=== PATIENT | female | born 1965 | race Caucasian/White ===

== ENCOUNTER 2016-12-04 23:50 | Inpatient (IN) | payer OTHER ==
[2016-12-04] MEDS ORDERED: SODIUM CHLORIDE 0.9% 1,000 ML with MVI, ADULT NO.4 WITH VIT K 10 ML, THIAMINE 100 MG, F... IV ONE ×4 (23:57)
--- NOTE | 2016-12-04 23:57 | ED ---
General Adult HPI - General Stated complaint: Seizure Time Seen by Provider: 12/04/16 23:50 Source: RN notes reviewed - History of Present Illness Initial comments: This is a 51-year-old female who presents to the emergency department via EMS. According to family she is a drinker and daughter believes she's been drinking up until yesterday. According to the patient's mother the patient started having some left-sided weakness and she shook for a few minutes and became unresponsive. EMS states they arrived and she was still unresponsive to them however she did respond to sternal rubs. EMS states that she was still confused however and slowly came around. Patient only complains of a mild headache and nausea at this time. Patient denies any numbness weakness. Patient denies any chest pain palpitations difficulty breathing or shortness of breath per patient denies abdominal pain patient denies any vomiting or diarrhea. Patient denies any recent fever chills or cough. Patient denies lightheadedness dizziness or near syncopal episode. - Related Data Home Medications Medication Instructions Recorded Confirmed Levothyroxine Sodium [Synthroid] 25 mcg PO DAILY 12/05/16 12/05/16 Allergies Allergy/AdvReac Type Severity Reaction Status Date / Time No Known Allergies Allergy Verified 12/05/16 00:02 Review of Systems ROS Statement: Those systems with pertinent positive or pertinent negative responses have been documented in the HPI. ROS Other: All systems not noted in ROS Statement are negative. General Exam - General Exam Comments Initial Comments: GENERAL: Patient is well-developed and well-nourished. Patient is nontoxic and well- hydrated and is in mild distress. ENT: Neck is soft and supple. No significant lymphadenopathy is noted. Oropharynx is clear. Moist mucous membranes. Neck has full range of motion without eliciting any pain. EYES: The sclera were anicteric and conjunctiva were pink and moist. Extraocular movements were intact and pupils were equal round and reactive to light. Eyelids were unremarkable. PULMONARY: Unlabored respirations. Good breath sounds bilaterally. No audible rales rhonchi or wheezing was noted. CARDIOVASCULAR: There is a regular rate and rhythm without any murmurs gallops or rubs. ABDOMEN: Soft and nontender with normal bowel sounds. No palpable organomegaly was noted. There is no palpable pulsatile mass. SKIN: Skin is clear with no lesions or rashes and otherwise unremarkable. NEUROLOGIC: Patient is alert and oriented x3. Cranial nerves II through XII are grossly intact. Motor and sensory are also intact. Normal speech, volume and content. Symmetrical smile. MUSCULOSKELETAL: Normal extremities with adequate strength and full range of motion. No lower extremity swelling or edema. No calf tenderness. LYMPHATICS: No significant lymphadenopathy is noted PSYCHIATRIC: Normal psychiatric evaluation. Normal interpersonal interactions appears functionally intact in deals appropriately with others. No signs of depression. No signs of anxiety. Course Vital Signs 12/04/16 12/05/16 12/05/16 23:59 00:06 00:33 Temperature 100.4 F H Pulse Rate 105 H 101 H 105 H Respiratory 18 18 18 Rate Blood Pressure 160/104 162/106 179/88 O2 Sat by Pulse 97 96 100 Oximetry 12/05/16 12/05/16 12/05/16 01:10 02:03 02:50 Temperature Pulse Rate 126 H 116 H 107 H Respiratory 18 16 16 Rate Blood Pressure 196/86 152/75 138/73 O2 Sat by Pulse 96 96 97 Oximetry Medical Decision Making - Medical Decision Making EKG shows sinus tachycardia at 104 bpm MA interval is 136 QRS is 86 QT interval 376 QTC is 494. Patient's EKG shows no ST segment elevation or depression or T- wave abdomen is noted. CT of the brain shows no acute abnormality. Chest x-ray shows no acute normalities. Patient started having a seizure while in the emergency department patient received 2 mg of Ativan. No source of infection this patient could be found. Patient was without complaints of any infection. Lactic acid may be elevated because of the seizure activity. - Lab Data Result diagrams: 12/04/16 23:59 12/04/16 23:59 Lab Results 12/04/16 12/04/16 12/04/16 Range/Units 23:59 23:59 23:59 WBC 5.8 (3.8-10.6) k/uL RBC 3.69 L (3.80-5.40) m/uL Hgb 11.9 (11.4-16.0) gm/dL Hct 36.6 (34.0-46.0) % MCV 99.0 (80.0-100.0) fL MCH 32.2 (25.0-35.0) pg MCHC 32.5 (31.0-37.0) g/dL RDW 13.7 (11.5-15.5) % Plt Count 96 L (150-450) k/uL Neutrophils % 78 % Lymphocytes % 14 % Monocytes % 4 % Eosinophils % 2 % Basophils % 1 % Neutrophils # 4.6 (1.3-7.7) k/uL Lymphocytes # 0.8 L (1.0-4.8) k/uL Monocytes # 0.3 (0-1.0) k/uL Eosinophils # 0.1 (0-0.7) k/uL Basophils # 0.0 (0-0.2) k/uL Manual Slide Review Performed PT (9.0-12.0) sec INR (<1.1) APTT (22.0-30.0) sec Sodium 133 L (137-145) mmol/L Potassium 4.0 (3.5-5.1) mmol/L Chloride 98 (98-107) mmol/L Carbon Dioxide 16 L (22-30) mmol/L Anion Gap 19 mmol/L BUN 7 (7-17) mg/dL Creatinine 0.80 (0.52-1.04) mg/dL Est GFR (MDRD) Af Amer >60 (>60 ml/min/1.73 sqM) Est GFR (MDRD) Non-Af >60 (>60 ml/min/1.73 sqM) Glucose 167 H (74-99) mg/dL POC Glucose (mg/dL) (75-99) mg/dL POC Glu Cake Inspector ID Plasma Lactic Acid Tonio (0.7-2.0) mmol/L Calcium 8.3 L (8.4-10.2) mg/dL Magnesium 1.8 (1.6-2.3) mg/dL Total Bilirubin 1.2 (0.2-1.3) mg/dL AST 105 H (14-36) U/L ALT 43 (9-52) U/L Alkaline Phosphatase 70 (38-126) U/L Total Creatine Kinase 314 H (30-135) U/L CK-MB (CK-2) 3.5 H* (0.0-2.4) ng/mL CK-MB (CK-2) Rel Index 1.1 Troponin I <0.012 (0.000-0.034) ng/mL Total Protein 6.8 (6.3-8.2) g/dL Albumin 4.7 (3.5-5.0) g/dL Urine Color Urine Appearance (Clear) Urine pH (5.0-8.0) Ur Specific [place] (1.001-1.035) Urine Protein (Negative) Urine Glucose (UA) (Negative) Urine Ketones (Negative) Urine Blood (Negative) Urine Nitrite (Negative) Urine Bilirubin (Negative) Urine Urobilinogen (<2.0) mg/dL Ur Leukocyte Esterase (Negative) Urine RBC (0-5) /hpf Urine WBC (0-5) /hpf Ur Squamous Epith Cells (0-4) /hpf Urine Bacteria (None) /hpf Granular Casts (0) /lpf Urine Mucus (None) /hpf 12/04/16 12/05/16 12/05/16 Range/Units 23:59 00:01 00:07 WBC (3.8-10.6) k/uL RBC (3.80-5.40) m/uL Hgb (11.4-16.0) gm/dL Hct (34.0-46.0) % MCV (80.0-100.0) fL MCH (25.0-35.0) pg MCHC (31.0-37.0) g/dL RDW (11.5-15.5) % Plt Count (150-450) k/uL Neutrophils % % Lymphocytes % % Monocytes % % Eosinophils % % Basophils % % Neutrophils # (1.3-7.7) k/uL Lymphocytes # (1.0-4.8) k/uL Monocytes # (0-1.0) k/uL Eosinophils # (0-0.7) k/uL Basophils # (0-0.2) k/uL Manual Slide Review PT 10.5 (9.0-12.0) sec INR 1.0 (<1.1) APTT 22.1 (22.0-30.0) sec Sodium (137-145) mmol/L Potassium (3.5-5.1) mmol/L Chloride (98-107) mmol/L Carbon Dioxide (22-30) mmol/L Anion Gap mmol/L BUN (7-17) mg/dL Creatinine (0.52-1.04) mg/dL Est GFR (MDRD) Af Amer (>60 ml/min/1.73 sqM) Est GFR (MDRD) Non-Af (>60 ml/min/1.73 sqM) Glucose (74-99) mg/dL POC Glucose (mg/dL) 172 H (75-99) mg/dL POC Glu Cake Inspector ID Nacny Mccollum Plasma Lactic Acid Tonio 7.0 H* (0.7-2.0) mmol/L Calcium (8.4-10.2) mg/dL Magnesium (1.6-2.3) mg/dL Total Bilirubin (0.2-1.3) mg/dL AST (14-36) U/L ALT (9-52) U/L Alkaline Phosphatase (38-126) U/L Total Creatine Kinase (30-135) U/L CK-MB (CK-2) (0.0-2.4) ng/mL CK-MB (CK-2) Rel Index Troponin I (0.000-0.034) ng/mL Total Protein (6.3-8.2) g/dL Albumin (3.5-5.0) g/dL Urine Color Urine Appearance (Clear) Urine pH (5.0-8.0) Ur Specific [place] (1.001-1.035) Urine Protein (Negative) Urine Glucose (UA) (Negative) Urine Ketones (Negative) Urine Blood (Negative) Urine Nitrite (Negative) Urine Bilirubin (Negative) Urine Urobilinogen (<2.0) mg/dL Ur Leukocyte Esterase (Negative) Urine RBC (0-5) /hpf Urine WBC (0-5) /hpf Ur Squamous Epith Cells (0-4) /hpf Urine Bacteria (None) /hpf Granular Casts (0) /lpf Urine Mucus (None) /hpf 12/05/16 Range/Units 01:51 WBC (3.8-10.6) k/uL RBC (3.80-5.40) m/uL Hgb (11.4-16.0) gm/dL Hct (34.0-46.0) % MCV (80.0-100.0) fL MCH (25.0-35.0) pg MCHC (31.0-37.0) g/dL RDW (11.5-15.5) % Plt Count (150-450) k/uL Neutrophils % % Lymphocytes % % Monocytes % % Eosinophils % % Basophils % % Neutrophils # (1.3-7.7) k/uL Lymphocytes # (1.0-4.8) k/uL Monocytes # (0-1.0) k/uL Eosinophils # (0-0.7) k/uL Basophils # (0-0.2) k/uL Manual Slide Review PT (9.0-12.0) sec INR (<1.1) APTT (22.0-30.0) sec Sodium (137-145) mmol/L Potassium (3.5-5.1) mmol/L Chloride (98-107) mmol/L Carbon Dioxide (22-30) mmol/L Anion Gap mmol/L BUN (7-17) mg/dL Creatinine (0.52-1.04) mg/dL Est GFR (MDRD) Af Amer (>60 ml/min/1.73 sqM) Est GFR (MDRD) Non-Af (>60 ml/min/1.73 sqM) Glucose (74-99) mg/dL POC Glucose (mg/dL) (75-99) mg/dL POC Glu Cake Inspector ID Plasma Lactic Acid Tonio (0.7-2.0) mmol/L Calcium (8.4-10.2) mg/dL Magnesium (1.6-2.3) mg/dL Total Bilirubin (0.2-1.3) mg/dL AST (14-36) U/L ALT (9-52) U/L Alkaline Phosphatase (38-126) U/L Total Creatine Kinase (30-135) U/L CK-MB (CK-2) (0.0-2.4) ng/mL CK-MB (CK-2) Rel Index Troponin I (0.000-0.034) ng/mL Total Protein (6.3-8.2) g/dL Albumin (3.5-5.0) g/dL Urine Color Yellow Urine Appearance Clear (Clear) Urine pH 5.5 (5.0-8.0) Ur Specific [place] 1.014 (1.001-1.035) Urine Protein 1+ H (Negative) Urine Glucose (UA) 2+ H (Negative) Urine Ketones 1+ H (Negative) Urine Blood Small H (Negative) Urine Nitrite Negative (Negative) Urine Bilirubin Negative (Negative) Urine Urobilinogen <2.0 (<2.0) mg/dL Ur Leukocyte Esterase Negative (Negative) Urine RBC 2 (0-5) /hpf Urine WBC 2 (0-5) /hpf Ur Squamous Epith Cells <1 (0-4) /hpf Urine Bacteria Rare H (None) /hpf Granular Casts 3 (0) /lpf Urine Mucus Rare H (None) /hpf Disposition Clinical Impression: Alcohol withdrawal seizure Disposition: ADMITTED IP TO THIS HOSP Referrals: None,Stated [Primary Care Provider] - 1-2 days Time of Disposition: 03:17
[2016-12-05] MEDS ORDERED: ACETAMINOPHEN TAB 500 MG TAB PO STA (00:08)
[2016-12-05 00:10] LABS: Glucose,Whole Blood 172 mg/dL (75-99)
[2016-12-05 00:20] LABS: Basophils % (A) 1 %; CH 32.1; CHCM 32.6; Eosinophils # (A) 0.1 k/uL (0-0.7); Eosinophils % (A) 2 %; HCT 36.6 % (34.0-46.0); HDW 1.91; HGB 11.9 gm/dL (11.4-16.0); Luc # (Auto) 0.06; Luc % (Auto) 1; Lymphocytes # (A) 0.8 k/uL (1.0-4.8); Lymphocytes % (A) 14 %; MCH 32.2 pg (25.0-35.0); MCHC 32.5 g/dL (31.0-37.0); Mean Platelet Volume 7.3; Monocytes # (A) 0.3 k/uL (0-1.0); Monocytes % (A) 4 %; Neutrophils # (A) 4.6 k/uL (1.3-7.7); Neutrophils % (A) 78 %; RBC 3.69 m/uL (3.80-5.40); RDW 13.7 % (11.5-15.5); WBC 5.8 k/uL (3.8-10.6); WBC (Perox) 5.89
[2016-12-05 00:25] LABS: ALT 43 U/L (9-52); AST 105 U/L (14-36); Alkaline Phosphatase 70 U/L (38-126); Anion Gap 19 mmol/L; Blood Urea Nitrogen 7 mg/dL (7-17); Calcium 8.3 mg/dL (8.4-10.2); Carbon Dioxide 16 mmol/L (22-30); Chloride 98 mmol/L (98-107); Glucose 167 mg/dL (74-99); Magnesium 1.8 mg/dL (1.6-2.3); Non-African American GFR(MDRD) >60 (>60 ml/min/1.73 sqM); Sodium 133 mmol/L (137-145); Total Bilirubin 1.2 mg/dL (0.2-1.3); Total Protein 6.8 g/dL (6.3-8.2)
[2016-12-05 00:27] LABS: Partial Thromboplastin Time 22.1 sec (22.0-30.0); Prothrombin Time 10.5 sec (9.0-12.0)
[2016-12-05 00:34] LABS: Creatine Kinase 314 U/L (30-135)
[2016-12-05 00:47] LABS: Troponin I <0.012 ng/mL (0.000-0.034)
[2016-12-05 00:48] LABS: Manual Review Performed
--- NOTE | 2016-12-05 00:48 | XR ---
EXAM: XR Chest, 2 Views CLINICAL HISTORY: Reason: Chest Pain. seizure and slurred speech tonight TECHNIQUE: Frontal and lateral views of the chest. COMPARISON: None FINDINGS: Lungs/pleura: Normal. No focal consolidation. No pleural effusion or pneumothorax. Heart/mediastinum: Normal. No cardiomegaly. Soft tissues: Unremarkable. Bones: No acute fracture. Degenerative changes of the spine. Upper abdomen: Normal. IMPRESSION: No acute disease.
[2016-12-05] MEDS ORDERED: LORazepam 2 MG/ML SYRINGE IV STA ×2 (00:52→01:06)
[2016-12-05] MEDS ORDERED: ONDANSETRON 4 MG/2 ML VIAL IVP STA (00:52)
--- NOTE | 2016-12-05 01:05 | CT ---
EXAM: CT Head Without Intravenous Contrast CLINICAL HISTORY: Reason: Pain, seizure and fever. TECHNIQUE: Axial computed tomography images of the head/brain without intravenous contrast. CTDI is 60.30 mGy and DLP is 999.80 mGy-cm. This CT exam was performed using one or more of the following dose reduction techniques: automated exposure control, adjustment of the mA and/or kV according to patient size, and/or use of iterative reconstruction technique. COMPARISON: None FINDINGS: Brain: No acute infarct or hemorrhage. No extra-axial fluid collection. No mass effect or midline shift. Mild cerebral volume loss. Ventricles and sulci: No ventriculomegaly or intraventricular hemorrhage. Skull: Normal. No bony lesion or fracture. Subcutaneous tissues: Normal. Sinuses: Mild mucosal thickening in the maxillary sinuses and ethmoid air cells. Mastoid air cells: Normal. Orbits: Grossly unremarkable. IMPRESSION: No acute intracranial abnormality.
[2016-12-05 01:10] LABS: Creatine Kinase MB 3.5 ng/mL (0.0-2.4)
[2016-12-05 02:12] LABS: Appearance,Urine Clear (Clear); Bacteria,Urine Rare /hpf; Bilirubin,Urine Negative (Negative); Glucose,Urine (UA) 2+ (Negative); Granular Casts,Urine 3 /lpf (0); Ketones,Urine 1+ (Negative); Leukocyte Esterase,Urine Negative (Negative); Mucus,Urine Rare /hpf; Nitrite,Urine Negative (Negative); PH, Urine 5.5 (5.0-8.0); Particle Count 10501; Protein,Urine 1+ (Negative); RBC,Urine 2 /hpf (0-5); Specific Gravity,Urine 1.014 (1.001-1.035); Squamous Epithelial Cell,Urine <1 /hpf (0-4); UA Billing (MACRO vs. MICRO) MICRO; Urobilinogen,Urine <2.0 mg/dL (<2.0); WBC,Urine 2 /hpf (0-5)
[2016-12-05] MEDS ORDERED: SODIUM CHLORIDE 0.9% 2,000 ML IV ONE (03:15)
[2016-12-05] MEDS ORDERED: SODIUM CHLORIDE 0.9% 1,000 ML IV ONE (03:18)
[2016-12-05 11:52] LABS: Basophils % (A) 0 %; CH 32.3; CHCM 32.9; Eosinophils # (A) 0.2 k/uL (0-0.7); Eosinophils % (A) 3 %; HDW 1.93; HGB 11.9 gm/dL (11.4-16.0); Luc # (Auto) 0.07; Luc % (Auto) 1; Lymphocytes # (A) 1.2 k/uL (1.0-4.8); Lymphocytes % (A) 17 %; MCH 31.9 pg (25.0-35.0); MCHC 32.3 g/dL (31.0-37.0); MCV 98.6 fL (80.0-100.0); Monocytes # (A) 0.3 k/uL (0-1.0); Monocytes % (A) 5 %; Neutrophils % (A) 74 %; RBC 3.75 m/uL (3.80-5.40); RDW 13.7 % (11.5-15.5); WBC 6.7 k/uL (3.8-10.6); WBC (Perox) 6.84
[2016-12-05 12:13] LABS: Anion Gap 6 mmol/L; Blood Urea Nitrogen 10 mg/dL (7-17); Calcium 8.1 mg/dL (8.4-10.2); Carbon Dioxide 26 mmol/L (22-30); Chloride 104 mmol/L (98-107); Glucose 85 mg/dL (74-99); Non-African American GFR(MDRD) >60 (>60 ml/min/1.73 sqM); Potassium 4.1 mmol/L (3.5-5.1); Sodium 136 mmol/L (137-145)
[2016-12-05] MEDS: THIAMINE 100 MG TAB PO SCH (17:56)
[2016-12-05] MEDS: LORazepam 2 MG/ML SYRINGE IV PRN ×2 (17:57→20:40)
[2016-12-05] MEDS ORDERED: TEMAZEPAM 15 MG CAP PO PRN (20:39)
[2016-12-05] MEDS ORDERED: cloNIDine HCL 0.1 MG TAB PO PRN (20:39)
--- NOTE | 2016-12-05 23:00 | HP ---
DATE OF ADMISSION: 12/05/2016 CHIEF COMPLAINT: Seizure disorder. HISTORY OF PRESENT ILLNESS: This 51-year-old woman with a past medical history of multiple medical problems, including hypothyroidism, history of section, history of anxiety, depression, has a history of heavy alcohol intake. Patient is not being followed by a primary physician in the outpatient setting. The patient apparently lives with her mother, and the patient was hiding the alcohol. At home, her mother noticed some weakness of the face, and subsequently the patient's eyeballs rolled backwards. The patient became unresponsive and had jerky movements. The patient had another episode of seizure in the ER, also. The patient was admitted for further evaluation and treatment. Alcoholic overdosage was suspected. The plasma lactic acid was found to be yesterday, which is improving at this time. Otherwise, the platelets are 96. There is no history of any fever, rigor or chills at this time. PAST MEDICAL HISTORY: 1. History of hypothyroidism. 2. History of anxiety, depression. 3. History of nicotine dependence. MEDICATIONS: Levothyroxine 112 mcg p.o. daily. ALLERGIES: NONE. FAMILY HISTORY: History of DJD, rheumatoid arthritis. SOCIAL HISTORY: History of alcohol, as mentioned earlier. Current everyday smoker. REVIEW OF SYSTEMS: ENT: No diminishing hearing. No diminished vision. CARDIOVASCULAR SYSTEM: No angina, palpitations. RESPIRATORY SYSTEM: No cough, hemoptysis. GI: As mentioned earlier. : No dysuria, retention. NERVOUS SYSTEM: As mentioned earlier. ALLERGY/IMMUNOLOGY: No asthma, hayfever. MUSCULOSKELETAL: As mentioned earlier. HEMATOLOGY/ONCOLOGY: No history of anemia. ENDOCRINE: Hypothyroidism. CONSTITUTIONAL: As mentioned earlier. DERMATOLOGY: Negative. RHEUMATOLOGY: Negative. PSYCHIATRY: Anxiety, depression. PHYSICAL EXAMINATION: Patient alert and oriented x3. Pulse 110, blood pressure 148/98, respiration 20, temperature 98.8, pulse ox 96% on room air. T-max 100.4. Blood pressure was 160/104. HEENT: Conjunctivae normal. NECK: No jugular venous distention. CARDIOVASCULAR SYSTEM: S1, S2 muffled. RESPIRATORY: Breath sounds diminished at the bases. A few scattered rhonchi. No crackles. ABDOMEN: Soft, nontender. No mass palpable. Moves all 4 limbs. No focal motor or sensory deficit. LYMPHATICS: No lymph node palpable in neck, axilla or groin. Labs at this time show WBC 5.8, platelets 56; sodium 133. Lactic acid as noted. Creatine kinase is 314. Troponin is less than 0.012. ASSESSMENT: 1. Acute generalized tonic-clonic seizure, possibly secondary to alcohol withdrawal. 2. Alcohol withdrawal and early delirium tremens. 3. History of nicotine dependence. 4. Thrombocytopenia. 5. Hyponatremia secondary to alcohol. 6. Decreased carbon dioxide. 7. Mild rhabdomyolysis from seizures. 8. Increased random blood sugar. 9. Increased plasma lactic acid from seizures. 10. Increased AST, possibly mild alcoholic hepatitis. 11. Depression. 12. History of hypothyroidism. 13. History of anxiety. 14. FULL CODE. RECOMMENDATIONS AND DISCUSSION: In this 51-year-old woman who presented with multiple complex medical issues, we will monitor the patient closely, continue the current medication, continue symptomatic treatment. I recommend CIAZ protocol. Supplement vitamins. Otherwise, monitor closely. IV fluids. Neurology consultation. Psychiatric consultation. See orders for further details. grease rack worker and case management evaluation to arrange possible rehab. Otherwise, prognosis extremely guarded, which I discussed at length with the patient, who understands and agrees. Further recommendations to follow. I would also recommend that the patient follow up closely with a primary physician. DVT prophylaxis. See orders for further details.
[2016-12-05] MEDS: NICOTINE 14MG/24HR PATCH TRANSDERM SCH (23:20)
[2016-12-06] MEDS: LEVOTHYROXINE 112 MCG TAB PO SCH (06:47)
[2016-12-06] MEDS: NICOTINE 14MG/24HR PATCH TRANSDERM SCH (09:50)
[2016-12-06] MEDS: PANTOPRAZOLE 40 MG TABLET PO SCH (09:50)
[2016-12-06] MEDS: LORazepam 2 MG/ML SYRINGE IV PRN (10:06)
[2016-12-06 10:13] LABS: ALT 23 U/L (9-52); AST 56 U/L (14-36); Alkaline Phosphatase 49 U/L (38-126); Anion Gap 8 mmol/L; Blood Urea Nitrogen 12 mg/dL (7-17); Calcium 8.7 mg/dL (8.4-10.2); Carbon Dioxide 24 mmol/L (22-30); Chloride 104 mmol/L (98-107); Cholesterol 209 mg/dL (<200); Glucose 115 mg/dL (74-99); Magnesium 1.9 mg/dL (1.6-2.3); Non-African American GFR(MDRD) >60 (>60 ml/min/1.73 sqM); Potassium 4.5 mmol/L (3.5-5.1); Sodium 136 mmol/L (137-145); Total Bilirubin 1.5 mg/dL (0.2-1.3); Total Protein 6.7 g/dL (6.3-8.2); Triglycerides 63 mg/dL (<150)
[2016-12-06 10:22] LABS: HDL Cholesterol 147 mg/dL (40-60)
[2016-12-06] MEDS: FOLIC ACID 1 MG TAB PO SCH (13:29)
[2016-12-06] MEDS: MULTIVITAMINS, THERA 1 EACH TAB PO SCH (13:29)
[2016-12-06] MEDS: THIAMINE 100 MG TAB PO SCH ×2 (13:29→17:48)
[2016-12-06] MEDS: cloNIDine HCL 0.1 MG TAB PO SCH (17:48)
[2016-12-06] MEDS: HYDROcodone/APAP 5-325MG 1 EACH TAB PO PRN (17:50)
--- NOTE | 2016-12-06 20:47 | PN ---
DATE OF SERVICE: 12/06/2016 This 51-year-old woman who was admitted with acute generalized tonic clonic seizure possibly secondary to alcohol withdrawal has been closely monitored. No chest pain. No palpitation. No fever. On exam, alert and oriented x3. Pulse is 98, blood pressure 140/97, respirations 20, temperature 98.6, pulse ox 98% on room air. HEENT: Conjunctivae normal. NECK: No jugular venous distention. CARDIOVASCULAR: S1 and S2. RESPIRATORY: Breath sounds diminished at the bases. No rhonchi, no crackles. ABDOMEN: Soft, nontender. LEGS: No edema, no swelling. NERVOUS SYSTEM: No focal deficits. Labs are noted. Hemoglobin 11.1, platelets 105, sodium 136, total bilirubin is 1.5. Cholesterol is 209, LDL is 147. ASSESSMENT: 1. Acute generalized tonic-clonic seizures, possibly secondary to alcohol withdrawal. 2. Alcohol withdrawal and early delirium tremens. 3. History of nicotine dependence. 4. Thrombocytopenia secondary to alcohol. 5. Hyponatremia secondary to alcohol. 6. Decreased CO2. 7. Hyperlipidemia. 8. Mild rhabdomyolysis and seizures. 9. History of increased random blood sugar. 10. Increased plasma lactic acid from seizures. 11. Increased AST, possibly mild alcoholic hepatitis. 12. Depression, not otherwise specified. 13. History of hypothyroidism. 14. History of anxiety. 15. FULL CODE. RECOMMENDATIONS AND DISCUSSION: I recommend to continue current medications, continue with symptomatic treatment at this time. We will monitor the patient closely. Otherwise, repeat labs in the morning. Neurology consultation, increase ambulation, alcohol cessation. Follow up labs with the primary physician. Guarded prognosis because of multiple complex medical issues as mentioned earlier. I also recommend the patient to get alcohol rehab. We will work with the social studies teacher and case management for the same. Guarded prognosis. Further recommendations to follow.
--- NOTE | 2016-12-06 21:27 | P.CNNES ---
History of Present Illness Consult date: 12/06/16 Reason for Consult: Patient being evaluated for alcohol withdrawal seizure. History of Present Illness: This patient is a 51-year-old right-handed white female who has a history of excessive alcohol abuse for the past several years. Patient was being followed by a primary care physician in the [facility] but has not seen her for several years. Apparently she lives at home with her mother and was drinking heavily. She then stopped and recently has been working on trying to discontinue alcohol use. She has not been in a formal drug rehabilitation program for alcohol abuse. The patient apparently was at home and had a episode in which her mother noticed her to become confused. She then became weak and slumped over and her eyes rolled backwards into her head. Patient became unresponsive and had some jerking motion of the arms and legs. Her mother decided to call EMS and she was brought into the emergency room. She had another seizure in the ER. The patient was started on a CIWA protocol and was admitted to the hospital for alcohol withdrawal seizure. She does have history of underlying depression and anxiety disorder. We have recommended she would be a good candidate to consider [facility]. She is aware of this program. The patient states her last seizure was many years ago. She has not had any recent alcohol related seizures for over 4 years. She is now resting comfortably in his had no further spells since admission to the hospital. She is now been admitted and neurology has been consulted for further evaluation and recommendations. Review of Systems Constitutional: Denies chills, Denies fever Eyes: denies blurred vision, denies pain Ears, nose, mouth and throat: Denies headache, Denies sore throat Cardiovascular: Denies chest pain, Denies shortness of breath Respiratory: Denies cough Gastrointestinal: Denies abdominal pain, Denies diarrhea, Denies nausea, Denies vomiting Genitourinary: Denies dysuria, Denies hematuria Musculoskeletal: Denies myalgias Integumentary: Denies pruritus, Denies rash Neurological: Reports change in mentation, Reports convulsions, Reports memory loss, Denies numbness, Denies weakness Psychiatric: Denies anxiety, Denies depression Endocrine: Denies fatigue, Denies weight change Past Medical History Additional Past Medical History / Comment(s): hypothyroidism History of Any Multi-Drug Resistant Organisms: None Reported Past Surgical History: Section, Tonsillectomy Past Anesthesia/Blood Transfusion Reactions: No Reported Reaction Past Psychological History: Anxiety, Depression Smoking Status: Current every day smoker Past Alcohol Use History: Heavy Past Drug Use History: None Reported - Past Family History Mother Family Medical History: Osteoarthritis (OA), Rheumatoid Arthritis (RA) Additional Family Medical History / Comment(s): throid Medications and Allergies Home Medications Medication Instructions Recorded Confirmed Type Levothyroxine Sodium [Synthroid] 112 mcg PO DAILY 12/05/16 12/05/16 History Allergies Allergy/AdvReac Type Severity Reaction Status Date / Time No Known Allergies Allergy Verified 12/05/16 07:33 Physical Examination - Vital Signs Vital Signs: Vital Signs Temp Pulse Resp BP BP Pulse Ox 12/06/16 15:00 98.6 F 98 20 146/97 98 12/06/16 07:00 97.0 F L 73 20 136/80 97 12/05/16 23:00 99.4 F 101 H 20 138/73 97 Intake and Output 12/06/16 12/06/16 12/06/16 06:59 14:59 22:59 Intake Total 480 Output Total 300 Balance -300 480 Intake: Oral 480 Output: Urine 300 Other: Voiding Method Toilet Toilet # Voids 2 2 - Constitutional General appearance: average body habitus, cooperative - EENT EENT: PERRL, mucous membranes moist - Respiratory Respiratory: lungs clear, normal breath sounds - Cardiovascular Cardiovascular: regular rate, normal S1, normal S2 Extremities: no peripheral edema bilaterally - Gastrointestinal Gastrointestinal: normoactive bowel sounds - Integumentary Integumentary: normal - Neurologic Cranial nerve examination: PERRL, EOMI, VFF, V1/V2/V3 grossly intact, face symmetric, tongue midline, intact gag reflex, intact corneal reflex, normal palatal elevation Speech examination: intact Sensorimotor examination: intact Detailed motor examination: grossly full strength in all extremities Motor examination - right side: 55: biceps, triceps, wrist flexion, wrist extension, hose tester, hip flexors, knee extensors, dorsiflexion, toe extension (EHL) , plantarflexion Motor examination - left side: 55: biceps, triceps, wrist flexion, wrist extension, hose tester, hip flexors, knee extensors, dorsiflexion, toe extension (EHL) , plantarflexion Detailed sensory examination: intact Reflex and gait examination: intact Reflexes: 1+: ankle, bicep, knee, tricep - Musculoskeletal Musculoskeletal: no pain - Psychiatric Psychiatric: mood/affect appropriate, cooperative Results - Laboratory Findings CBC and BMP: 12/05/16 11:39 12/06/16 09:26 Abnormal Lab Findings: Abnormal Labs 12/04/16 12/04/16 12/04/16 23:59 23:59 23:59 RBC 3.69 L Plt Count 96 L Lymphocytes # 0.8 L Sodium 133 L Carbon Dioxide 16 L Glucose 167 H POC Glucose (mg/dL) Plasma Lactic Acid Tonio Calcium 8.3 L Total Bilirubin AST 105 H Total Creatine Kinase 314 H CK-MB (CK-2) 3.5 H* Cholesterol HDL Cholesterol Urine Protein Urine Glucose (UA) Urine Ketones Urine Blood Urine Bacteria Urine Mucus U Benzodiazepines Scrn 12/05/16 12/05/16 12/05/16 00:01 00:07 01:51 RBC Plt Count Lymphocytes # Sodium Carbon Dioxide Glucose POC Glucose (mg/dL) 172 H Plasma Lactic Acid Tonio 7.0 H* Calcium Total Bilirubin AST Total Creatine Kinase CK-MB (CK-2) Cholesterol HDL Cholesterol Urine Protein 1+ H Urine Glucose (UA) 2+ H Urine Ketones 1+ H Urine Blood Small H Urine Bacteria Rare H Urine Mucus Rare H U Benzodiazepines Scrn 12/05/16 12/05/16 12/05/16 11:39 11:39 11:39 RBC 3.75 L Plt Count 105 L Lymphocytes # Sodium 136 L Carbon Dioxide Glucose POC Glucose (mg/dL) Plasma Lactic Acid Tonio 0.5 L Calcium 8.1 L Total Bilirubin AST Total Creatine Kinase CK-MB (CK-2) Cholesterol HDL Cholesterol Urine Protein Urine Glucose (UA) Urine Ketones Urine Blood Urine Bacteria Urine Mucus U Benzodiazepines Scrn 12/06/16 12/06/16 06:55 09:26 RBC Plt Count Lymphocytes # Sodium 136 L Carbon Dioxide Glucose 115 H POC Glucose (mg/dL) Plasma Lactic Acid Tonio Calcium Total Bilirubin 1.5 H AST 56 H Total Creatine Kinase CK-MB (CK-2) Cholesterol 209 H HDL Cholesterol 147 H Urine Protein Urine Glucose (UA) Urine Ketones Urine Blood Urine Bacteria Urine Mucus U Benzodiazepines Scrn Detected H Assessment and Plan (1) Acute encephalopathy Status: Acute Code(s): G93.40 - ENCEPHALOPATHY, UNSPECIFIED (2) Alcohol withdrawal seizure Status: Acute Code(s): F10.239 - ALCOHOL DEPENDENCE WITH WITHDRAWAL, UNSPECIFIED; R56.9 - UNSPECIFIED CONVULSIONS Plan: This patient is a 51-year-old female who has a history of alcohol abuse. She had a seizure which was witnessed at home by her mother. She apparently slumped and her eyes rolled back into her head and she went into a small generalized seizure. She did not bite her tongue and did not have any bowel or bladder incontinence. She was brought into the emergency room where she had another episode of seizure-like activity. She was started on a CIWA protocol and admitted to the hospital. Patient's neurological examination at this time is nonfocal. Patient's clinical history is consistent with alcohol withdrawal seizure. We have discussed these findings and her history of recurrent seizures. We strongly recommend she seek out drug rehabilitation program at [facility]. This will help her stabilize her alcohol abuse history. She is also encouraged to seek out treatment of underlying depression and to establish with a primary care physician. Patient underwent computed tomography scan of the brain which was normal. We will obtain routine EEG for further assessment. Her overall prognosis at this time remains guarded. Time with Patient: Greater than 30
[2016-12-07] MEDS: LORazepam 2 MG/ML SYRINGE IV PRN ×8 (01:38→22:20)
[2016-12-07] MEDS: LEVOTHYROXINE 112 MCG TAB PO SCH (06:40)
[2016-12-07] MEDS: HYDROcodone/APAP 5-325MG 1 EACH TAB PO PRN (06:44)
[2016-12-07 08:53] LABS: ALT 38 U/L (9-52); AST 53 U/L (14-36); Alkaline Phosphatase 65 U/L (38-126); Anion Gap 12 mmol/L; Blood Urea Nitrogen 8 mg/dL (7-17); Calcium 9.2 mg/dL (8.4-10.2); Carbon Dioxide 27 mmol/L (22-30); Chloride 100 mmol/L (98-107); Glucose 91 mg/dL (74-99); Non-African American GFR(MDRD) >60 (>60 ml/min/1.73 sqM); Potassium 3.7 mmol/L (3.5-5.1); Sodium 139 mmol/L (137-145); Total Bilirubin 1.3 mg/dL (0.2-1.3); Total Protein 6.9 g/dL (6.3-8.2)
[2016-12-07] MEDS: PANTOPRAZOLE 40 MG TABLET PO SCH (09:10)
[2016-12-07] MEDS: NICOTINE 14MG/24HR PATCH TRANSDERM SCH ×2 (09:10→22:38)
[2016-12-07] MEDS: cloNIDine HCL 0.1 MG TAB PO SCH ×2 (09:10→21:53)
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
[2016-12-07] MEDS ORDERED: SODIUM CHLORIDE 0.9% 1,000 ML with MVI, ADULT NO.4 WITH VIT K 10 ML, THIAMINE 100 MG, F... IV ONE ×4 (12:01)
[2016-12-07] MEDS: FOLIC ACID 1 MG TAB PO SCH (13:59)
[2016-12-07] MEDS: THIAMINE 100 MG TAB PO SCH ×2 (13:59→16:41)
[2016-12-07 14:55] VITALS: RESP 20
--- NOTE | 2016-12-07 15:38 | PN ---
DATE OF SERVICE: 12/07/2016 This 51-year-old woman was admitted with acute generalized tonic-clonic seizure, possibly alcohol withdrawal seizure. She also had features delirium tremens. The patient is restless. The patient was hallucinating. The patient had change in mental status. The patient was given Ativan. She is being closely monitored. The patient is rather sedated with Ativan at this time. Past medical history reviewed. Review of systems could not be taken because the patient is sedated. Current medications are reviewed and include: 1. [place] 5 mg q.6 p.r.n. 2. Catapres 0.1 q.4 p.r.n. 3. Folic acid. 4. Haldol. 5. Synthroid. 6. Ativan. 7. CIWA protocol. 8. Habitrol 14 daily. 9. Protonix 40 mg daily. 10. IV fluids. PHYSICAL EXAMINATION: Patient . Pulse is 93, blood pressure 130/92, respiration 18, temperature 97.9, pulse ox 99% on room air. HEENT: Conjunctivae normal. NECK: No jugular venous distention. CARDIOVASCULAR SYSTEM: S1, S2 muffled. RESPIRATORY SYSTEM: Breath sounds diminished at the bases. A few scattered rhonchi and crackles. ABDOMEN: Soft, non-tender. No mass palpable. LEGS: No edema. No swelling. NERVOUS SYSTEM: The patient is sedated. SKIN: No ulcer, rash, bleeding. LABS: CBC not available. Sodium 139, potassium 3.7. Total bilirubin is 1.3. HDL is 147. Cholesterol is 209. ASSESSMENT: 1. Acute generalized tonic-clonic seizures, possibly secondary to alcohol withdrawal. 2. Alcohol withdrawal and early delirium tremens. 3. History of nicotine dependence. 4. Thrombocytopenia secondary to alcohol. 5. Hyponatremia secondary to alcohol. 6. Decreased carbon dioxide. 7. Hyperlipidemia. 8. Mild rhabdomyolysis and seizures. 9. History of increased random blood sugar. 10. Increased plasma lactic acid from seizures. 11. Increased AST, possibly mild acute hepatitis. 12. Depression not otherwise specified. 13. History of hypothyroidism. 14. History of anxiety. 15. FULL CODE. RECOMMENDATIONS AND DISCUSSION: In this 51-year-old woman who presented with multiple complex medical issues, we will monitor the patient closely, continue the current medications, continue symptomatic treatment. Otherwise, at this time I would recommend continuing with CIWA protocol aggressively and also Haldol p.r.n. Overall prognosis is extremely guarded because of the florid DTs the patient is having. Discussed with staff. Further recommendations to follow. MTDD
[2016-12-07] MEDS: MULTIVITAMINS, THERA 1 EACH TAB PO SCH (16:35)
--- NOTE | 2016-12-07 16:39 | P.PN ---
Subjective This patient is a 51 year old female who is admitted with alchol withdrawal seizure. The patient is doing well today with no reported seizures. She is being seen by Psychiatry today and we will await their recommendations. Psychiatry is recommending the patient to continue on a CIWA protocol. They also suggest possibility use of Haldol as needed if she develops any symptoms or signs of delirium. Patient was able to complete a EEG today which was reviewed. Apparently she did not complete the entire EEG but what was completed reveals no evidence of any epileptiform discharges. Patient once again advised to seek drug rehabilitation at [facility] [place] when she is discharged. She has not shown any aggressive behavior or agitation at this time. We will continue close neurological follow-up for the patient during this admission. Her overall prognosis at this time remains guarded. Objective - Vital Signs Vital signs: Vital Signs Temp 97.9 F 12/07/16 07:00 Pulse 93 12/07/16 07:00 Resp 18 12/07/16 07:00 BP 132/92 12/07/16 07:00 Pulse Ox 99 12/07/16 07:00 Intake & Output 12/06/16 12/07/16 12/07/16 18:59 06:59 18:59 Intake Total 480 300 240 Balance 480 300 240 Intake: Oral 480 300 240 Other: Voiding Method Toilet Toilet # Voids 2 - Exam Physical Examination: PHYSICAL EXAMINATION: Patient is resting comfortably in bed. VITAL SIGNS: Blood pressure is [137/104]. Heart rate is [100]. Respiration is [ 20]. Temperature is [98.7]. HEENT: Head is atraumatic, neck is supple, there were no carotid bruits. CHEST: Lungs are clear to auscultation and percussion. CARDIAC: S1, S2 normal rate and rhythm. There is no murmur. ABDOMEN: Soft and nontender. Bowel sounds are present. EXTREMITIES: There is no pedal edema. Peripheral pulses are present. Neurological examination: Patient's neurological examination is unchanged from yesterday. - Labs CBC & Chem 7: 12/05/16 11:39 12/07/16 07:31 Labs: Abnormal Lab Results - Last 24 Hours (Table) 12/07/16 Range/Units 07:31 AST 53 H (14-36) U/L Microbiology - Last 24 Hours (Table) 12/05/16 01:51 Blood Culture - Preliminary Blood No Growth after 48 hours Assessment and Plan (1) Acute encephalopathy Status: Acute Code(s): G93.40 - ENCEPHALOPATHY, UNSPECIFIED (2) Alcohol withdrawal seizure Status: Acute Code(s): F10.239 - ALCOHOL DEPENDENCE WITH WITHDRAWAL, UNSPECIFIED; R56.9 - UNSPECIFIED CONVULSIONS Plan: This patient is a 51-year-old female who has a history of alcohol abuse. She had a seizure which was witnessed at home by her mother. She apparently slumped and her eyes rolled back into her head and she went into a small generalized seizure. She did not bite her tongue and did not have any bowel or bladder incontinence. She was brought into the emergency room where she had another episode of seizure-like activity. She was started on a CIWA protocol and admitted to the hospital. Patient's neurological examination at this time is nonfocal. Patient's clinical history is consistent with alcohol withdrawal seizure. We have discussed these findings and her history of recurrent seizures. We strongly recommend she seek out drug rehabilitation program at [facility]. This will help her stabilize her alcohol abuse history. She is also encouraged to seek out treatment of underlying depression and to establish with a primary care physician. Patient underwent computed tomography scan of the brain which was normal. We will obtain routine EEG for further assessment. She was able to complete her EEG today. The EEG was reviewed and is normal for her age. There is no evidence of any epileptiform discharges. She is to continue on a CIWA protocol. Patient was seen by psychiatry today as well. They are recommending to consider Haldol as needed for any agitation or confusion. Clinical history is mild delirium. We once again recommend she seek out drug rehabilitation at [facility]. Her overall prognosis at this time remains guarded.
[2016-12-07] MEDS: 1: MVI, ADULT NO.4 WITH VIT K 10 ML, THIAMINE 100 MG, FOLIC ACID 1 MG in SODIUM CHLORIDE IV SCH ×4 (16:40)
[2016-12-07] MEDS: HALOPERIDOL LACTATE 5 MG/ML 1 ML VIAL IM PRN ×2 (16:40→21:38)
--- NOTE | 2016-12-07 22:34 | EEG ---
DATE OF SERVICE: 12/07/2016 INDICATIONS FOR EXAMINATION: This patient is a 51 -year-old female admitted to the hospital with alcohol withdrawal seizures. AGE: 51Y EEG FINDINGS: A routine 21 channel awake digital EEG recording was accomplished utilizing the 10-20 international system with bipolar and referential montages. The background activity in the most alert resting state consists of a low to medium amplitude, fairly well developed and well sustained 6-7 Hz activity over the posterior head regions. This posterior rhythm attenuates to eye opening. There is a small amount of low amplitude 18-20 Hz beta activity seen maximally over the anterior head regions. Muscle and movement artifact was observed on a few occasions during the tracing. No activation procedure were performed. No epileptiform discharges were seen. IMPRESSION: This EEG is mildly abnormal in a diffuse fashion due to slight slow of the EEG background. The EEG failed to reveal any focal, lateralized or epileptiform abnormalities. Clinical correlation is recommended.
[2016-12-08] MEDS: 1: MVI, ADULT NO.4 WITH VIT K 10 ML, THIAMINE 100 MG, FOLIC ACID 1 MG in SODIUM CHLORIDE IV SCH ×4 (02:56)
[2016-12-08] MEDS: LORazepam 2 MG/ML SYRINGE IV PRN (03:00)
[2016-12-08] MEDS: PANTOPRAZOLE 40 MG TABLET PO SCH (07:56)
[2016-12-08] MEDS: LEVOTHYROXINE 112 MCG TAB PO SCH (07:56)
[2016-12-08] MEDS: cloNIDine HCL 0.1 MG TAB PO SCH (08:01)
[2016-12-08 08:44] LABS: ALT 37 U/L (9-52); AST 55 U/L (14-36); Alkaline Phosphatase 60 U/L (38-126); Anion Gap 9 mmol/L; Blood Urea Nitrogen 7 mg/dL (7-17); Calcium 8.9 mg/dL (8.4-10.2); Carbon Dioxide 23 mmol/L (22-30); Chloride 107 mmol/L (98-107); Glucose 85 mg/dL (74-99); Non-African American GFR(MDRD) >60 (>60 ml/min/1.73 sqM); Potassium 3.8 mmol/L (3.5-5.1); Sodium 139 mmol/L (137-145); Total Bilirubin 1.2 mg/dL (0.2-1.3); Total Protein 6.3 g/dL (6.3-8.2)
[2016-12-08 12:05] LABS: Basophils % (A) 0 %; CH 31.9; CHCM 32.3; Eosinophils # (A) 0.2 k/uL (0-0.7); Eosinophils % (A) 5 %; HCT 40.2 % (34.0-46.0); HDW 1.93; HGB 12.9 gm/dL (11.4-16.0); Luc # (Auto) 0.15; Luc % (Auto) 3; Lymphocytes # (A) 1.7 k/uL (1.0-4.8); Lymphocytes % (A) 37 %; MCH 31.7 pg (25.0-35.0); MCV 99.1 fL (80.0-100.0); Mean Platelet Volume 8.3; Monocytes # (A) 0.3 k/uL (0-1.0); Monocytes % (A) 7 %; Neutrophils # (A) 2.2 k/uL (1.3-7.7); Neutrophils % (A) 48 %; RBC 4.06 m/uL (3.80-5.40); RDW 13.6 % (11.5-15.5); WBC 4.6 k/uL (3.8-10.6); WBC (Perox) 4.63
[2016-12-08] MEDS: FOLIC ACID 1 MG TAB PO SCH (12:47)
[2016-12-08] MEDS: THIAMINE 100 MG TAB PO SCH (12:47)
[2016-12-08 15:50] VITALS: BP 131/90; PULSE 94; TEMP 96.5
[2016-12-08] MEDS: HYDROcodone/APAP 5-325MG 1 EACH TAB PO PRN (16:17)
--- NOTE | 2016-12-08 16:22 | P.PN ---
Subjective This patient is a 51 year old female who is admitted with alchol withdrawal seizure. The patient is doing well today with no reported seizures. She is being seen by Psychiatry today and we will await their recommendations. Psychiatry is recommending the patient to continue on a CIWA protocol. They also suggest possibility use of Haldol as needed if she develops any symptoms or signs of delirium. Patient was able to complete a EEG today which was reviewed. Apparently she did not complete the entire EEG but what was completed reveals no evidence of any epileptiform discharges. Patient once again advised to seek drug rehabilitation at [facility] when she is discharged. She has not shown any aggressive behavior or agitation at this time. Patient is once again advised to seek help to the drug rehab program when she is discharged. She did have mild delirium tremens but has now seemingly come out of that stage. She is been encouraged to follow-up with appropriate outpatient therapy. We will continue close neurological follow-up for the patient during this admission. Her overall prognosis at this time remains guarded. Objective - Vital Signs Vital signs: Vital Signs Temp 96.5 F L 12/08/16 15:00 Pulse 94 12/08/16 15:00 Resp 20 12/08/16 15:00 BP 131/90 12/08/16 15:00 Pulse Ox 100 12/08/16 15:00 Intake & Output 12/07/16 12/08/16 12/08/16 18:59 06:59 18:59 Intake Total 240 840 Balance 240 840 Intake: Intake, IV Titration 600 Amount Sodium Chloride 0.9% 1, 600 000 ml @ 75 mls/hr IV .BY DURATION KARTHIKEYAN Rx#: [id number] Oral 240 240 Other: Voiding Method Toilet # Voids 1 2 2 - Exam Physical Examination: PHYSICAL EXAMINATION: Patient is resting comfortably in bed. VITAL SIGNS: Blood pressure is [131/90]. Heart rate is [94]. Respiration is [20] . Temperature is [96.5]. HEENT: Head is atraumatic, neck is supple, there were no carotid bruits. CHEST: Lungs are clear to auscultation and percussion. CARDIAC: S1, S2 normal rate and rhythm. There is no murmur. ABDOMEN: Soft and nontender. Bowel sounds are present. EXTREMITIES: There is no pedal edema. Peripheral pulses are present. Neurological examination: Patient's neurological examination is unchanged from yesterday. - Labs CBC & Chem 7: 12/08/16 07:16 12/08/16 07:16 Labs: Abnormal Lab Results - Last 24 Hours (Table) 12/08/16 12/08/16 Range/Units 07:16 07:16 Plt Count 116 L (150-450) k/uL AST 55 H (14-36) U/L Microbiology - Last 24 Hours (Table) 12/05/16 01:51 Blood Culture - Preliminary Blood No Growth after 72 hours Assessment and Plan (1) Acute encephalopathy Status: Acute Code(s): G93.40 - ENCEPHALOPATHY, UNSPECIFIED (2) Alcohol withdrawal seizure Status: Acute Code(s): F10.239 - ALCOHOL DEPENDENCE WITH WITHDRAWAL, UNSPECIFIED; R56.9 - UNSPECIFIED CONVULSIONS Plan: This patient is a 51-year-old female who has a history of alcohol abuse. She had a seizure which was witnessed at home by her mother. She apparently slumped and her eyes rolled back into her head and she went into a small generalized seizure. She did not bite her tongue and did not have any bowel or bladder incontinence. She was brought into the emergency room where she had another episode of seizure-like activity. She was started on a CIWA protocol and admitted to the hospital. Patient's neurological examination at this time is nonfocal. Patient's clinical history is consistent with alcohol withdrawal seizure. We have discussed these findings and her history of recurrent seizures. We strongly recommend she seek out drug rehabilitation program at [facility]. This will help her stabilize her alcohol abuse history. She is also encouraged to seek out treatment of underlying depression and to establish with a primary care physician. Patient underwent computed tomography scan of the brain which was normal. We will obtain routine EEG for further assessment. She was able to complete her EEG today. The EEG was reviewed and is normal for her age. There is no evidence of any epileptiform discharges. She is to continue on a CIWA protocol. Patient was seen by psychiatry today as well. They are recommending to consider Haldol as needed for any agitation or confusion. Clinical history is mild delirium. We once again recommend she seek out drug rehabilitation at [facility]. Patient seems to be doing better today. She is being considered for discharge home today. She is once again strongly encouraged to follow-up with a alcohol drug rehabilitation program as outlined above. Patient is going to work hard to seek proper outpatient therapy given this recent admission. Her overall prognosis at this time remains guarded.
--- NOTE | 2016-12-08 17:47 | P.CON ---
Consult Note - . Assessment/Plan:: Date of consultation: 12/08/2016 Reason for consultation: Follow-up on the prior consultation as requested by the primary team because that is some a change of the patient's symptoms. The case has been discussed with the nurse from the primary team who reported that no change in the patient's symptoms and the patient continued to present as a same with no worsening of depression and no reports suicidal ideation psychotic or manic behavior. The charge nurse reported that the primary team evaluated the patient today and planning for discharge. The patient has been seen by Dr. Bailey yesterday and the patient's symptoms has been addressed. Patient has been suffering from alcohol use disorder and she denied any active symptoms of alcohol intoxication or withdrawal. The patient addressed that has been feeling depressed but she denies any suicidal thoughts. Patient patient denies any change of her symptoms since yesterday and she agreed to the plan to follow up with outpatient substance use treatment. Patient denies any manic symptoms and she denies any psychotic symptoms. She denies any auditory or visual hallucinations , and no delusions could be elicited. Mental status examination; Appearance: The patient appears stated age, adequately groomed, no specific features. Gait/posture: No abnormal movements. Attitude and behavior: pt was engaged, fully cooperative, fair eye contact. Motor activity: no psychomotor agitation Speech:normal rate, rhythm and articulated Mood: Depressed anxious Affect: Constricted, but not blunted Thought form: goal-directed, linear, coherent. Thought content: Non-delusional, denies suicidal thoughts, denies homicidal thoughts, denies intentions or plans. Perception: Denies any auditory or visual hallucinations Attention: No impairment. Patient was able to repeat serial 7. Orientation: Patient patient was fully oriented to time place person and situation. Insight: Patient has fair insight about his psychiatric disorder. Judgment: Patient has fair judgment about his psychiatric treatment. Assessment: Alcohol use disorder severe Plan: Continue with the plan to refer the patient to outpatient [facility] treatment to address ongoing alcohol use disorder.
--- NOTE | 2016-12-09 17:07 | DS ---
DATE OF ADMISSION: 12/05/2016 DATE OF DISCHARGE: 12/08/2016 FINAL DIAGNOSES: 1. Acute generalized tonic clonic seizure, possible alcoholic withdrawal. 2. Alcohol withdrawal and delirium tremens, acute. 3. History of nicotine dependence. 4. Thrombocytopenia secondary to alcohol. 5. Change in mental status, metabolic encephalopathy, secondary to delirium tremens. 6. Hyponatremia secondary to alcohol. 7. Decreased CO2. 8. Hyperlipidemia. 9. Mild seizures. 10. History of increased random blood sugar. 11. Increased plasma lactic acid from seizures, present on admission, improved. 12. Increased AST, possible mild acute hepatitis. 13. Depression not otherwise specified. 14. History of hypothyroidism. 15. History of anxiety, not otherwise specified. 16. FULL CODE. DISCHARGE DISPOSITION: The patient is being discharged in stable condition with guarded prognosis. Discharge cleared by psychiatry. HISTORY OF PRESENT ILLNESS: This 51-year-old woman with a past medical history of multiple medical problems was admitted with acute generalized tonic-clonic seizures and as well as alcohol withdrawal and delirium tremens. Patient treated medically. The patient improved significantly. The psych recommended outpatient follow-up. On evaluation, vital signs stable. CARDIOVASCULAR: S1, S2 muffled. ABDOMEN: Soft, nontender. Central nervous system: No focal deficits. DISCHARGE ADVICE AND MEDICATIONS: 1. Diet is cardiac. 2. Activity limited until follow-up. 3. Follow up with Dr. Gomes in two to three days with labs. 4. Follow up with counselling and ETOH rehab. MEDICATIONS: 1. Clonidine 0.1 p.o. b.i.d. hold if systolic pressure is less than 100. 2. Folic acid 1 mg p.o. daily. 3. Synthroid 120 mcg p.o. daily. 4. Ativan 1 mg p.o. daily. 5. Multivitamin one p.o. daily. 6. Habitrol 14 daily. 7. Protonix 40 daily. 8. Thiamine 100 mg p.o. daily. 9. Folic acid 1 mg p.o. daily. Once again, the patient will be discharged in a stable condition with guarded prognosis. MTDD
== END 2016-12-08 17:03 | disposition home or self-care (01) | DRG 896 ==
LOC: EC 23:50 → 4MS4W 12-05 03:19
PROVIDERS: ADMIT Internal Medicine; ATTEND Internal Medicine
PROC: HZ2ZZZZ Detoxification Services for Substance Abuse Treatment (ICD-10-PCS; principal; 2016-12-05)
DX: F10.231 Alcohol dependence with withdrawal delirium (principal); G93.41 Metabolic encephalopathy; M62.82 Rhabdomyolysis; D69.59 Other secondary thrombocytopenia; G40.509 Epileptic seizures related to external causes, not intractable, without status epilepticus; E87.1 Hypo-osmolality and hyponatremia; B17.9 Acute viral hepatitis, unspecified; F10.29 Alcohol dependence with unspecified alcohol-induced disorder; E78.5 Hyperlipidemia, unspecified; F32.9 Major depressive disorder, single episode, unspecified; R73.09 Other abnormal glucose; R00.0 Tachycardia, unspecified; F17.200 Nicotine dependence, unspecified, uncomplicated; E03.9 Hypothyroidism, unspecified; F41.9 Anxiety disorder, unspecified; Z79.899 Other long term (current) drug therapy; Z71.41 Alcohol abuse counseling and surveillance of alcoholic; Z56.0 Unemployment, unspecified; Z81.1 Family history of alcohol abuse and dependence
CPT/HCPCS: 36415; 70450; 71020; 80048; 80053; 80061; 80306; 81001; 82550; 82553; 83605; 83735; 84484; 85025; 85610; 85730; 87040; 93005; 95816